=== PATIENT | female | born 1940 | race Caucasian/White ===

== ENCOUNTER 2018-12-03 12:52 | Outpatient (CLI) | payer MEDICARE, OTHER ==
[2018-12-03] MEDS ORDERED: gadopentetate dimeglumine 10 MMOL/20 ML syringe IV ONE (17:58)
== END 2018-12-03 23:59 | disposition home or self-care (01) ==
LOC: RAD 12:52
PROVIDERS: ATTEND Internal Medicine Medical Oncology
DX: M48.56XA Collapsed vertebra, not elsewhere classified, lumbar region, initial encounter for fracture (principal); M48.07 Spinal stenosis, lumbosacral region; M51.24 Other intervertebral disc displacement, thoracic region; M51.27 Other intervertebral disc displacement, lumbosacral region; C49.9 Malignant neoplasm of connective and soft tissue, unspecified
CPT/HCPCS: 72157; 72158; A9579